=== PATIENT | female | born 1950 | race Two or more races ===

== ENCOUNTER 2019-02-01 10:56 | Emergency (ER) | payer BC ==
[~2019-02-01] VITALS: Ht 162.6 cm; Wt 53.5 kg
[2019-02-01] MEDS ORDERED: HYDROCODONE/APAP 5/325MG 1 EACH TABLET ONE ×2 (11:09→11:16)
[2019-02-01] MEDS: HYDROCODONE/APAP 5/325MG 1 EACH TABLET PO ONE ×2 (11:14→11:58)
--- NOTE | 2019-02-01 11:20 | NUR ---
PER DR. CERNA VERBAL ORDER: GIVE SECOND DOSE OF NORCO 5/325 PO. PER PT, SHE TAKES 7.5 AT HOME.
[2019-02-01] MEDS ORDERED: HYDROCODONE/APAP 5/325MG 1 EACH TABLET PO ONE (11:30)
--- NOTE | 2019-02-01 11:38 | NUR ---
PT BIB , TRIPPED AND FALL FROM THE ELEVATOR PAVEMENT, C/O LEFT ARM PAIN. -KO. PT AAOX4, VSS. DENIES CP, SOB, DIZZINESS, N/V, DOBBINS @ THIS TIME. PT SEEN & EVAL'D BY DR. CERNA & WILL CONT TO MONITOR.
[2019-02-01] MEDS ORDERED: LIDOCAINE 1%-EPI 1:100,000 20 ML VIAL ONE (11:54)
[2019-02-01] MEDS ORDERED: LIDOCAINE 1% INJ 50 ML MDV IJ ONE (11:57)
[2019-02-01] MEDS ORDERED: LIDOCAINE 1%-EPI 1:100,000 50 ML VIAL IJ ONE (12:00)
--- NOTE | 2019-02-01 13:17 | NUR ---
Patient discharged to home in stable condition. Written and verbal after care instructions given. Patient verbalizes understanding of instruction.
[2019-02-01 13:18] VITALS: BP 142/82
== END 2019-02-01 13:19 | disposition home or self-care (01) ==
LOC: ER 11:02
DX: S52.572A Other intraarticular fracture of lower end of left radius, initial encounter for closed fracture (principal); S42.212A Unspecified displaced fracture of surgical neck of left humerus, initial encounter for closed fracture; I10 Essential (primary) hypertension; M79.7 Fibromyalgia; E03.9 Hypothyroidism, unspecified; W01.0XXA Fall on same level from slipping, tripping and stumbling without subsequent striking against object, initial encounter; Y93.89 Activity, other specified; Y92.89 Other specified places as the place of occurrence of the external cause; Y99.8 Other external cause status
CPT/HCPCS: 25605; 73030; 73100; 73110; 99284; J3490 ×2